=== PATIENT | male | born 1950 ===

== ENCOUNTER 2022-05-22 07:53 | Inpatient (IN) | payer MEDICAID, OTHER ==
[~2022-05-22] VITALS: Ht 172.7 cm; Wt 54.2 kg
[2022-05-22 08:52] LABS: Albumin 2.8 g/dL (3.4-5.0); Calcium 8.6 mg/dL (8.5-10.1); Potassium 4.9 mmol/L (3.5-5.1)
[2022-05-22 08:56] LABS: Bilirubin, Total 0.9 mg/dL (0.2-1.0)
[2022-05-22 08:59] LABS: Basophils # (auto) 0.1 10 ^3/uL (0-0.2); Eosinophils # (auto) 0 10 ^3/uL (0-0.8); Monocytes # (auto) 1.1 10 ^3/uL (0-1.3); Neutrophils # (auto) 8.6 10 ^3/uL (1.6-8.6)
[2022-05-22] MEDS ORDERED: IPRATROPIUM BROM 0.5 MG/2.5ML INH SOL NEB ONE ×3 (09:00→09:30)
[2022-05-22] MEDS ORDERED: ALBUTEROL SULF 2.5 MG/0.5ML(0.5%) NEB SOLN NEB ONE ×3 (09:00→09:30)
[2022-05-22] MEDS ORDERED: DexAMETHasone INJECTION 10 MG in D5W 5% 50 ML IV ONE (09:00)
[2022-05-22] MEDS ORDERED: MAGNESIUM SULFATE 1GM/100ML 100 ML IV ONE (09:00)
[2022-05-22 09:02] LABS: Basophils % (auto) 0.6 % (0.0-2.0); Eosinophils % (auto) 0.4 % (0.0-7.0); Hematocrit 32.5 % (41.0-53.0); Hemoglobin 10.2 g/dL (13.5-17.5); Lymphocytes # (auto) 1.1 10 ^3/uL (0.4-5.4); Lymphocytes % (auto) 9.8 % (10.0-50.0); Mean Corpuscular Hemoglobin 23.7 pg (28.0-32.0); Mean Corpuscular Hgb Conc. 31.3 g/dL (32.0-36.0); Mean Corpuscular Volume 75.6 fL (80.0-100.0); Monocytes % (auto) 10.1 % (0.0-12.0); Neutrophils % (auto) 79.1 % (37.0-80.0); Nucleated Red Blood Cells % 0.2 %; Red Cell Distribution Width 27.6 % (11.8-14.3); White Blood Cell 10.8 10^3/uL (4.4-10.8)
[2022-05-22] MEDS ORDERED: IOHEXOL 350 MG/ML 100ML IJ ONE (09:44)
[2022-05-22] MEDS ORDERED: VANCOMYCIN 1GM/250ML 250 ML IV ONE ×2 (09:45→11:30)
[2022-05-22] MEDS ORDERED: cefEPIME 1gm INJ VIAL IM ONE (09:45)
[2022-05-22] MEDS ORDERED: FUROSEMIDE 20 MG/2 ML VIAL IV ONE (10:15)
[2022-05-22] MEDS ORDERED: CEFEPIME 1GM/ 50ML 50 ML IV ONE ×2 (10:30)
[2022-05-22 12:09] LABS: Urine Bacteria NONE SEEN /hpf (None Seen); Urine Blood Negative /uL (Negative); Urine WBC 1 /hpf (0 - 3)
[2022-05-22] MEDS ORDERED: ALBUTEROL SULF HFA 90MCG INH 200DOSE IN PRN (13:00)
[2022-05-22] MEDS ORDERED: MORPHINE SULFATE INJ 2 MG/ml SYRG IV PRN (13:00)
[2022-05-22] MEDS ORDERED: NITROGLYCERIN 0.4 MG SL TAB SL PRN (13:00)
[2022-05-22] MEDS ORDERED: FUROSEMIDE 100 MG/10ML VIAL IV ONE (13:00)
[2022-05-22] MEDS: cefTRIAXone 1GM/50ML D5W 50 ML IV SCH (13:52)
[2022-05-22] MEDS: AZITHROMYCIN 500MG/ 250ML 250 ML IV SCH (13:52)
[2022-05-22] MEDS: NICOTINE 7MG/24HR TOPICAL PATCH TD SCH (13:54)
[2022-05-22 14:02] LABS: Alcohol, Urine < 3.0 mg/dL (0-10); Amphetamine Screen, Urine NEGATIVE (NEGATIVE); Barbiturate Scree,Urine NEGATIVE (NEGATIVE); Benzodiazephine Screen, Urine NEGATIVE (NEGATIVE); Cannabinoid Screen, Urine NEGATIVE (NEGATIVE); Cocaine Screen, Urine NEGATIVE (NEGATIVE); Opiate Scree,Urine NEGATIVE (NEGATIVE); Phencyclidine Screen, Urine NEGATIVE (NEGATIVE)
[2022-05-22 14:21] LABS: Basophils # (auto) 0 10 ^3/uL (0-0.2); Eosinophils # (auto) 0 10 ^3/uL (0-0.8); Lymphocytes # (auto) 0.3 10 ^3/uL (0.4-5.4); Nucleated Red Blood Cells % 0.2 %
[2022-05-22 14:23] LABS: Eosinophils % (auto) 0.1 % (0.0-7.0); Hematocrit 32.7 % (41.0-53.0); Hemoglobin 9.9 g/dL (13.5-17.5); Lymphocytes % (auto) 3.9 % (10.0-50.0); Mean Corpuscular Hemoglobin 22.9 pg (28.0-32.0); Mean Corpuscular Hgb Conc. 30.4 g/dL (32.0-36.0); Mean Corpuscular Volume 75.3 fL (80.0-100.0); Monocytes # (auto) 0.3 10 ^3/uL (0-1.3); Monocytes % (auto) 3.7 % (0.0-12.0); Neutrophils # (auto) 8.2 10 ^3/uL (1.6-8.6); Neutrophils % (auto) 92.3 % (37.0-80.0); Red Blood Cells 4.33 10^6/uL (4.5-5.90); White Blood Cell 8.9 10^3/uL (4.4-10.8)
[2022-05-22 14:32] LABS: Red Cell Distribution Width 28.4 % (11.8-14.3)
[2022-05-22 14:37] LABS: Albumin 2.7 g/dL (3.4-5.0); Calcium 8.5 mg/dL (8.5-10.1); Magnesium 2.2 mg/dL (1.6-2.6); Potassium 4.1 mmol/L (3.5-5.1)
[2022-05-22 14:44] LABS: BUN/Creatinine Ratio 19.8; Bilirubin, Total 0.9 mg/dL (0.2-1.0); CRP High Sensitivity 5.07 mg/dL (< 0.3); Total Protein 6.7 g/dL (6.4-8.2)
[2022-05-22 14:46] LABS: Cholesterol 153 mg/dL (< 200); HDL Cholesterol 51 mg/dL (40-59); LDL Cholesterol 101 mg/dL (< 100); Triglycerides 90 mg/dL (< 150)
[2022-05-22 15:30] LABS: Lactic Acid w/Reflex 2.5 mmol/L (0.4-2.0)
[2022-05-22] MEDS ORDERED: MORPHINE SULFATE INJ 2 MG/ml SYRG IV ONE (16:15)
[2022-05-22 17:42] LABS: Thyroid Stimulating Hormone 1.46 uIU/mL (0.358-3.74)
[2022-05-22] MEDS: FUROSEMIDE 40 MG/4 ML VIAL IV SCH (18:00)
[2022-05-22 22:45] VITALS: BP 134/88
[2022-05-22] MEDS: ENOXAPARIN SOD 40 MG/0.4 ML SYRINGE SC SCH (23:17)
[2022-05-23] VITALS (7 sets, daily range): BP systolic 129–148; BP diastolic 85–97
[2022-05-23] MEDS: HYDROcodone-ACET 5/325MG TAB PO PRN ×4 (00:30→20:08)
[2022-05-23 05:22] LABS: Eosinophils # (auto) 0 10 ^3/uL (0-0.8); Monocytes # (auto) 0.6 10 ^3/uL (0-1.3)
[2022-05-23 05:24] LABS: Basophils # (auto) 0.1 10 ^3/uL (0-0.2); Hematocrit 29.4 % (41.0-53.0); Hemoglobin 9.2 g/dL (13.5-17.5); Lymphocytes # (auto) 0.8 10 ^3/uL (0.4-5.4); Lymphocytes % (auto) 6.5 % (10.0-50.0); Mean Corpuscular Hemoglobin 23.2 pg (28.0-32.0); Mean Corpuscular Hgb Conc. 31.3 g/dL (32.0-36.0); Monocytes % (auto) 4.9 % (0.0-12.0); Neutrophils # (auto) 11.3 10 ^3/uL (1.6-8.6); Neutrophils % (auto) 87.6 % (37.0-80.0); Nucleated Red Blood Cells % 0.1 %; Red Blood Cells 3.98 10^6/uL (4.5-5.90); White Blood Cell 12.9 10^3/uL (4.4-10.8)
[2022-05-23 05:27] LABS: Red Cell Distribution Width 27.9 % (11.8-14.3)
[2022-05-23 05:53] LABS: Albumin 2.6 g/dL (3.4-5.0); Calcium 8.3 mg/dL (8.5-10.1); Potassium 4.1 mmol/L (3.5-5.1)
[2022-05-23 05:58] LABS: Bilirubin, Total 0.8 mg/dL (0.2-1.0); Total Protein 6.5 g/dL (6.4-8.2)
[2022-05-23] MEDS: FUROSEMIDE 40 MG/4 ML VIAL IV SCH ×2 (06:26→09:52)
[2022-05-23] MEDS: cefTRIAXone 1GM/50ML D5W 50 ML IV SCH (09:43)
[2022-05-23] MEDS: AZITHROMYCIN 500MG/ 250ML 250 ML IV SCH (09:51)
[2022-05-23] MEDS: ENOXAPARIN SOD 40 MG/0.4 ML SYRINGE SC SCH (09:52)
[2022-05-23] MEDS: DexAMETHasone SOD PHOS 10MG/1ML VIAL INJ IV SCH (09:52)
[2022-05-23] MEDS: POTASSIUM CHL 20 Meq TABLET PO SCH (09:53)
[2022-05-23] MEDS: NICOTINE 7MG/24HR TOPICAL PATCH TD SCH (10:00)
[2022-05-23] MEDS: ALBUTEROL SULF 2.5 MG/0.5ML(0.5%) NEB SOLN NEB SCH ×3 (14:50→22:23)
[2022-05-23] MEDS: IPRATROPIUM BROM 0.5 MG/2.5ML INH SOL NEB SCH ×3 (14:51→22:23)
[2022-05-24] MEDS: ENOXAPARIN SOD 40 MG/0.4 ML SYRINGE SC SCH ×3 (00:32→21:19)
[2022-05-24] MEDS: ALBUTEROL SULF 2.5 MG/0.5ML(0.5%) NEB SOLN NEB SCH ×6 (02:31→22:34)
[2022-05-24] MEDS: IPRATROPIUM BROM 0.5 MG/2.5ML INH SOL NEB SCH ×6 (02:31→22:34)
[2022-05-24 05:00] VITALS: BP 134/95
[2022-05-24] MEDS: FUROSEMIDE 40 MG/4 ML VIAL IV SCH ×2 (05:41→19:25)
[2022-05-24 09:00] VITALS: BP 118/83
[2022-05-24] MEDS: NICOTINE 7MG/24HR TOPICAL PATCH TD SCH (10:00)
[2022-05-24] MEDS: DexAMETHasone SOD PHOS 10MG/1ML VIAL INJ IV SCH (11:00)
[2022-05-24] MEDS: cefTRIAXone 1GM/50ML D5W 50 ML IV SCH (11:00)
[2022-05-24] MEDS: POTASSIUM CHL 20 Meq TABLET PO SCH (11:00)
[2022-05-24] MEDS: AZITHROMYCIN 500MG/ 250ML 250 ML IV SCH (12:00)
[2022-05-24 13:10] VITALS: BP 160/61
[2022-05-24 17:00] VITALS: BP 147/104
[2022-05-24 20:00] VITALS: BP 136/86
[2022-05-24] MEDS: HYDROcodone-ACET 5/325MG TAB PO PRN (20:40)
[2022-05-24 22:00] VITALS: BP 136/86
[2022-05-25] VITALS (8 sets, daily range): BP systolic 74–147; BP diastolic 46–99
[2022-05-25] MEDS: ALBUTEROL SULF 2.5 MG/0.5ML(0.5%) NEB SOLN NEB SCH ×5 (02:05→18:21)
[2022-05-25] MEDS: IPRATROPIUM BROM 0.5 MG/2.5ML INH SOL NEB SCH ×5 (02:05→18:21)
[2022-05-25] MEDS ORDERED: ONDANSETRON ODT 4 MG TAB PO PRN (03:30)
[2022-05-25] MEDS: HYDROcodone-ACET 5/325MG TAB PO PRN (05:25)
[2022-05-25] MEDS: FUROSEMIDE 40 MG/4 ML VIAL IV SCH (05:29)
[2022-05-25] MEDS ORDERED: SPIRONOLACTONE 25 MG TAB PO SCH (10:00)
[2022-05-25] MEDS: NICOTINE 7MG/24HR TOPICAL PATCH TD SCH ×2 (10:00→10:03)
[2022-05-25] MEDS ORDERED: CARVEDILOL 12.5 MG TAB PO SCH (10:00)
[2022-05-25] MEDS ORDERED: ENOXAPARIN SOD 60 MG/0.6 ML SYRINGE SC SCH (10:00)
[2022-05-25] MEDS ORDERED: AMIODARONE HCL 200 MG TAB PO SCH (10:00)
[2022-05-25] MEDS ORDERED: LISINOPRIL 10 MG TAB PO SCH (10:00)
[2022-05-25] MEDS: DAPAGLIFLOZIN 5 MG TAB PO SCH (10:01)
[2022-05-25] MEDS: POTASSIUM CHL 20 Meq TABLET PO SCH (10:04)
[2022-05-25] MEDS: DexAMETHasone SOD PHOS 10MG/1ML VIAL INJ IV SCH (10:04)
[2022-05-25] MEDS: FAMOTIDINE 20 MG TAB PO SCH (10:04)
[2022-05-25] MEDS: AZITHROMYCIN 500MG/ 250ML 250 ML IV SCH (10:04)
[2022-05-25] MEDS: cefTRIAXone 1GM/50ML D5W 50 ML IV SCH (10:04)
[2022-05-25 10:17] LABS: INR 1.31 (0.9-1.15); Partial Thromboplastin Time 26.8 sec (24.6-33.4)
[2022-05-25] MEDS ORDERED: APIXABAN 5 MG TAB PO SCH (22:00)
[2022-05-26] MEDS: IPRATROPIUM BROM 0.5 MG/2.5ML INH SOL NEB SCH ×7 (00:54→21:34)
[2022-05-26] MEDS: ALBUTEROL SULF 2.5 MG/0.5ML(0.5%) NEB SOLN NEB SCH ×7 (00:54→21:34)
[2022-05-26 05:00] VITALS: BP 107/72
[2022-05-26 06:02] LABS: Basophils # (auto) 0 10 ^3/uL (0-0.2); Basophils % (auto) 0.1 % (0.0-2.0); Eosinophils # (auto) 0 10 ^3/uL (0-0.8); Hemoglobin 8.9 g/dL (13.5-17.5); Lymphocytes # (auto) 0.6 10 ^3/uL (0.4-5.4); Monocytes # (auto) 0.5 10 ^3/uL (0-1.3); Neutrophils # (auto) 5.9 10 ^3/uL (1.6-8.6)
[2022-05-26 06:04] LABS: Lymphocytes % (auto) 8.5 % (10.0-50.0); Mean Corpuscular Hemoglobin 22.9 pg (28.0-32.0); Mean Corpuscular Hgb Conc. 30.7 g/dL (32.0-36.0); Mean Corpuscular Volume 74.6 fL (80.0-100.0); Monocytes % (auto) 7.4 % (0.0-12.0); Nucleated Red Blood Cells % 0.2 %; Red Blood Cells 3.89 10^6/uL (4.5-5.90); White Blood Cell 7.1 10^3/uL (4.4-10.8)
[2022-05-26 06:16] LABS: Albumin 2.4 g/dL (3.4-5.0); Calcium 7.8 mg/dL (8.5-10.1); Potassium 4.3 mmol/L (3.5-5.1)
[2022-05-26 06:19] LABS: Bilirubin, Total 0.8 mg/dL (0.2-1.0); Total Protein 5.7 g/dL (6.4-8.2)
[2022-05-26 09:00] VITALS: BP 88/39
[2022-05-26] MEDS: DexAMETHasone SOD PHOS 10MG/1ML VIAL INJ IV SCH (09:09)
[2022-05-26] MEDS: cefTRIAXone 1GM/50ML D5W 50 ML IV SCH (09:09)
[2022-05-26] MEDS: AZITHROMYCIN 500MG/ 250ML 250 ML IV SCH (09:10)
[2022-05-26] MEDS: FAMOTIDINE 20 MG TAB PO SCH (09:11)
[2022-05-26] MEDS: NICOTINE 7MG/24HR TOPICAL PATCH TD SCH (09:11)
[2022-05-26] MEDS: POTASSIUM CHL 20 Meq TABLET PO SCH (09:11)
[2022-05-26] MEDS: DAPAGLIFLOZIN 5 MG TAB PO SCH (09:49)
[2022-05-26 13:00] VITALS: BP 82/53
[2022-05-26 14:28] VITALS: BP 88/39
[2022-05-26 17:07] VITALS: BP 107/70
[2022-05-26 22:00] VITALS: BP 127/61
[2022-05-27] MEDS: ALBUTEROL SULF 2.5 MG/0.5ML(0.5%) NEB SOLN NEB SCH ×6 (03:00→23:31)
[2022-05-27] MEDS: IPRATROPIUM BROM 0.5 MG/2.5ML INH SOL NEB SCH ×6 (03:00→23:31)
[2022-05-27 05:00] VITALS: BP 118/77
[2022-05-27 09:00] VITALS: BP_SYST 115; BP_SYST 123; BP_DIAS 69; BP_DIAS 90
[2022-05-27] MEDS: DAPAGLIFLOZIN 5 MG TAB PO SCH (09:28)
[2022-05-27] MEDS: cefTRIAXone 1GM/50ML D5W 50 ML IV SCH (09:28)
[2022-05-27] MEDS: DexAMETHasone SOD PHOS 10MG/1ML VIAL INJ IV SCH (09:28)
[2022-05-27] MEDS: POTASSIUM CHL 20 Meq TABLET PO SCH (09:29)
[2022-05-27] MEDS: FAMOTIDINE 20 MG TAB PO SCH (09:29)
[2022-05-27] MEDS: HYDROcodone-ACET 5/325MG TAB PO PRN ×2 (09:30→20:16)
[2022-05-27] MEDS: NICOTINE 7MG/24HR TOPICAL PATCH TD SCH (10:00)
[2022-05-27] MEDS: predniSONE 20 MG TAB PO SCH (12:50)
[2022-05-27 13:00] VITALS: BP 115/90
[2022-05-27] MEDS ORDERED: AMIODARONE HCL 200 MG TAB PO ONE (14:00)
[2022-05-27] MEDS ORDERED: DIGOXIN (250MCG/ML) 2 ML AMPULE IV ONE (15:30)
[2022-05-27 17:00] VITALS: BP 145/85
[2022-05-27 21:55] VITALS: BP 141/79
[2022-05-27] MEDS: AMIODARONE HCL 200 MG TAB PO SCH (21:57)
[2022-05-27] MEDS: SACUBITRIL-VALSARTAN 24mg/26mg TAB PO SCH (21:57)
[2022-05-28] MEDS: ALBUTEROL SULF 2.5 MG/0.5ML(0.5%) NEB SOLN NEB SCH ×6 (02:54→22:03)
[2022-05-28] MEDS: IPRATROPIUM BROM 0.5 MG/2.5ML INH SOL NEB SCH ×6 (02:54→22:03)
[2022-05-28 04:57] VITALS: BP 119/75
[2022-05-28 09:00] VITALS: BP 151/79
[2022-05-28] MEDS ORDERED: DIGOXIN (250MCG/ML) 2 ML AMPULE IV SCH (10:00)
[2022-05-28] MEDS: NICOTINE 7MG/24HR TOPICAL PATCH TD SCH (10:00)
[2022-05-28] MEDS: POTASSIUM CHL 20 Meq TABLET PO SCH (10:00)
[2022-05-28] MEDS: predniSONE 20 MG TAB PO SCH (10:14)
[2022-05-28] MEDS: FAMOTIDINE 20 MG TAB PO SCH (10:15)
[2022-05-28] MEDS: AMIODARONE HCL 200 MG TAB PO SCH ×2 (10:15→22:00)
[2022-05-28] MEDS ORDERED: FUROSEMIDE 40 MG/4 ML VIAL IV ONE (10:15)
[2022-05-28] MEDS ORDERED: ENOXAPARIN SOD 100 MG/1 ML SYRINGE SC ONE (10:15)
[2022-05-28] MEDS: SACUBITRIL-VALSARTAN 24mg/26mg TAB PO SCH ×2 (10:15→22:05)
[2022-05-28] MEDS: DAPAGLIFLOZIN 5 MG TAB PO SCH (10:15)
[2022-05-28] MEDS: cefTRIAXone 1GM/50ML D5W 50 ML IV SCH (10:16)
[2022-05-28] MEDS ORDERED: AMIO200T33 PO (10:22)
[2022-05-28] MEDS ORDERED: ALBUAER3 IN (10:22)
[2022-05-28] MEDS ORDERED: HYDR-4902 PO (10:22)
[2022-05-28] MEDS ORDERED: SACU1TAB PO (10:22)
[2022-05-28] MEDS ORDERED: PRED20TA2 PO (10:22)
[2022-05-28] MEDS ORDERED: IPRIH INH (10:22)
[2022-05-28] MEDS ORDERED: DIGO0.12 PO (10:22)
[2022-05-28] MEDS ORDERED: DAPA1TAB4 PO (10:22)
[2022-05-28 13:00] VITALS: BP 116/81
[2022-05-28] MEDS ORDERED: APIX5TAB PO (16:19)
[2022-05-28 16:34] VITALS: BP 111/72
[2022-05-28] MEDS: FUROSEMIDE 40 MG/4 ML VIAL IV SCH (17:58)
[2022-05-28] MEDS ORDERED: LORazepam 0.5 MG TAB PO PRN (21:45)
[2022-05-28] MEDS: CARVEDILOL 3.125 MG TAB PO SCH (22:00)
[2022-05-28] MEDS: ENOXAPARIN SOD 60 MG/0.6 ML SYRINGE SC SCH (22:01)
[2022-05-29] MEDS: ALBUTEROL SULF 2.5 MG/0.5ML(0.5%) NEB SOLN NEB SCH ×6 (02:22→21:54)
[2022-05-29] MEDS: IPRATROPIUM BROM 0.5 MG/2.5ML INH SOL NEB SCH ×6 (02:22→21:54)
[2022-05-29] MEDS: FUROSEMIDE 40 MG/4 ML VIAL IV SCH ×2 (05:32→17:53)
[2022-05-29] MEDS: HYDROcodone-ACET 5/325MG TAB PO PRN (05:58)
[2022-05-29 09:00] VITALS: BP 101/58
[2022-05-29] MEDS: NICOTINE 7MG/24HR TOPICAL PATCH TD SCH (10:00)
[2022-05-29] MEDS: POTASSIUM CHL 20 Meq TABLET PO SCH ×2 (10:06→10:17)
[2022-05-29] MEDS: cefTRIAXone 1GM/50ML D5W 50 ML IV SCH (10:06)
[2022-05-29] MEDS: predniSONE 20 MG TAB PO SCH (10:07)
[2022-05-29] MEDS: SACUBITRIL-VALSARTAN 24mg/26mg TAB PO SCH ×2 (10:07→22:00)
[2022-05-29] MEDS: DIGOXIN 0.125 MG TAB PO SCH (10:08)
[2022-05-29] MEDS: CARVEDILOL 3.125 MG TAB PO SCH ×2 (10:08→22:00)
[2022-05-29] MEDS: FAMOTIDINE 20 MG TAB PO SCH (10:08)
[2022-05-29] MEDS: ENOXAPARIN SOD 60 MG/0.6 ML SYRINGE SC SCH (10:10)
[2022-05-29] MEDS: AMIODARONE HCL 200 MG TAB PO SCH ×2 (10:16→22:27)
[2022-05-29] MEDS: DAPAGLIFLOZIN 5 MG TAB PO SCH (11:08)
[2022-05-29 11:40] VITALS: BP 101/58
[2022-05-29 13:00] VITALS: BP 80/46
[2022-05-29 16:42] VITALS: BP 91/53
[2022-05-29 22:00] VITALS: BP 96/57
[2022-05-29] MEDS: APIXABAN 5 MG TAB PO SCH (22:27)
[2022-05-30] MEDS: IPRATROPIUM BROM 0.5 MG/2.5ML INH SOL NEB SCH ×5 (02:10→14:18)
[2022-05-30] MEDS: ALBUTEROL SULF 2.5 MG/0.5ML(0.5%) NEB SOLN NEB SCH ×5 (02:10→14:18)
[2022-05-30 05:00] VITALS: BP 134/93
[2022-05-30] MEDS: FUROSEMIDE 40 MG/4 ML VIAL IV SCH (05:18)
[2022-05-30 06:26] LABS: Potassium 4.5 mmol/L (3.5-5.1)
[2022-05-30 06:32] LABS: Albumin 2.2 g/dL (3.4-5.0); BUN/Creatinine Ratio 42.9; Calcium 8.1 mg/dL (8.5-10.1); Phosphorus 2.4 mg/dL (2.5-4.90)
[2022-05-30 09:00] VITALS: BP 99/48
[2022-05-30] MEDS: CARVEDILOL 3.125 MG TAB PO SCH (10:00)
[2022-05-30] MEDS: SACUBITRIL-VALSARTAN 24mg/26mg TAB PO SCH (10:00)
[2022-05-30] MEDS: DIGOXIN 0.125 MG TAB PO SCH (10:00)
[2022-05-30] MEDS: DAPAGLIFLOZIN 5 MG TAB PO SCH (10:00)
[2022-05-30] MEDS: NICOTINE 7MG/24HR TOPICAL PATCH TD SCH (10:00)
[2022-05-30] MEDS: cefTRIAXone 1GM/50ML D5W 50 ML IV SCH (10:20)
[2022-05-30] MEDS: APIXABAN 5 MG TAB PO SCH (10:21)
[2022-05-30] MEDS: predniSONE 20 MG TAB PO SCH (10:21)
[2022-05-30] MEDS: FAMOTIDINE 20 MG TAB PO SCH (10:27)
[2022-05-30] MEDS: AMIODARONE HCL 200 MG TAB PO SCH (12:09)
[2022-05-30 13:00] VITALS: BP 98/65
[2022-05-30 14:53] VITALS: BP 102/61
== END 2022-05-30 15:00 | DRG 720 ==
LOC: EDBD 07:53 → ER 07:53 → TELE 12:59 → TELE-WESTW 22:33
PROVIDERS: ADMIT Registered Nurse; ATTEND Family Medicine
PROC: 0W9G3ZX Drainage of Peritoneal Cavity, Percutaneous Approach, Diagnostic (ICD-10-PCS; principal; 2022-05-27)
DX: A41.9 Sepsis, unspecified organism (principal); J96.01 Acute respiratory failure with hypoxia; I50.43 Acute on chronic combined systolic (congestive) and diastolic (congestive) heart failure; J15.6 Pneumonia due to other Gram-negative bacteria; I42.7 Cardiomyopathy due to drug and external agent; J91.8 Pleural effusion in other conditions classified elsewhere; I48.92 Unspecified atrial flutter; E88.09 Other disorders of plasma-protein metabolism, not elsewhere classified; D63.8 Anemia in other chronic diseases classified elsewhere; I11.0 Hypertensive heart disease with heart failure; Z20.822 Contact with and (suspected) exposure to COVID-19; J98.11 Atelectasis; I49.3 Ventricular premature depolarization; J43.9 Emphysema, unspecified; D50.9 Iron deficiency anemia, unspecified; I48.0 Paroxysmal atrial fibrillation; R73.03 Prediabetes; Z59.00 Homelessness unspecified; Z72.0 Tobacco use; Z71.6 Tobacco abuse counseling
CPT/HCPCS: 36415; 36600; 71045; 71275; 76604; 76942; 80053; 80061; 80069; 80162; 80307; 81001; 82306; 82728; 82805; 83036; 83605; 83615; 83735; 83880; 83986; 84443; 84484; 85025; 85379; 85610; 85730; 86022; 86141; 87040; 87070; 87086; 87205; 89051; 93005; 93306; 94640; 94660; 96365; 96368; 96375; 97163; 99291; G0378; J0696; J1100; J7060; Q0162